=== PATIENT | male | born 1970 | race Caucasian/White ===

== ENCOUNTER → 2016-10-22 | Outpatient (CLI) | payer OTHER ==
--- NOTE | ~2016-10-22 | MR32 ---
[facility] A Service of [facility] RADIOLOGY TEXT RESULTS PATIENT: GRACIE CLEMENTS LOCATION: [facility] : 74 UNIT #: [id number] AGE: [address]: Sam Hanna DO SEX: M ORDER DR: [id number] [address] [address] [id number] O MR#: [id number] Acc #: [id number] NAME: GRACIE CLEMENTS : 1970 SEX: M STUDY DATE/TIME: 10/22/2016 11:31 UNIT: [facility] ROOM: STUDY DESCRIPTION: MR Cervical Wo Contrast Attending Physician: Sam Hanna D.O. Referring Physician: Sam Hanna D.O. Ordering Physician: Sam Hanna D.O. Primary Care Physician: Alicia Blackmon M.D. [facility]ENTER REPORT This report is preliminary unless electronic signature is present. EXAM MRI of the cervical spine without contrast dated 10/22/2016. COMPARISON None. HISTORY Increasing neck pain, mid back pain especially between the scapulae. Increased muscle spasms in the last few years. FINDINGS Multisequence, multiplanar imaging of the cervical spine was obtained without contrast. Vertebral body heights and alignment are preserved. There is mild loss of normal cervical curvature. Degenerative disc disease is at multiple levels. Cord demonstrates normal course, caliber and signal. Pre- and paravertebral soft tissues do not demonstrate any significant abnormality. C2-3: Mild degenerative disc signal loss but otherwise unremarkable. C3-4: Mild disc bulge with tiny right uncinate spur and no significant neural foraminal narrowing or canal stenosis. C4-5, C5-6: Concentric disc bulge with suspicious tiny central protrusion at C5-6. No significant canal stenosis or neural foraminal narrowing. C6-7, C7-T1: Mild degenerative disc signal loss but otherwise unremarkable. IMPRESSION 1. Mild degenerative disc disease is seen particularly at C5-6 with tiny central protrusion. [facility] A Service of [facility] RADIOLOGY TEXT RESULTS PATIENT: GRACIE CLEMENTS LOCATION: [facility] : 74 UNIT #: [id number] AGE: [address]: Sam Hanna DO SEX: M ORDER DR: 2. No significant canal stenosis or neural foraminal narrowing. 3. Cord is unremarkable. 4. Minimal anterior endplate changes are noted in the mid aspect of C5-6 likely relating to the degenerative change. Dictated by... Salvador Harris M.D. THIS IS AN ELECTRONICALLY VERIFIED REPORT Salvador Harris M.D. at 10/23/2016 3:38 PM CPR/psc TD: 10/22/2016 21:35 JOB #: [id number] MRI CENTER REPORT Page 1 of 1
--- NOTE | ~2016-10-22 | MR176 ---
[facility] A Service of [facility] RADIOLOGY TEXT RESULTS PATIENT: GRACIE CLEMENTS LOCATION: [facility] : 74 UNIT #: [id number] AGE: [address]: Sam Hanna DO SEX: M ORDER DR: [id number] [address] [address] [id number] O MR#: [id number] Acc #: [id number] NAME: GRACIE CLEMENTS : 1970 SEX: M STUDY DATE/TIME: 10/22/2016 11:55 UNIT: [facility] ROOM: STUDY DESCRIPTION: MR Thoracic Wo Contrast Attending Physician: Sam Hanna D.O. Referring Physician: Sam Hanna D.O. Ordering Physician: Sam Hanna D.O. Primary Care Physician: Alicia Blackmon M.D. [facility] CENTER REPORT This report is preliminary unless electronic signature is present. EXAM MRI of the thoracic spine without contrast dated 10/22/2016 COMPARISON Chest 2 views dated 09/07/2011. HISTORY Increasing neck pain, mid back pain especially between the scapula. Increased muscle spasm for a few years, probably less than 5 years. FINDINGS Multisequence, multiplanar imaging of the thoracic spine was obtained without contrast. Vertebral body heights and alignment are preserved. Intervertebral disc heights are intact. Thoracic cord demonstrates normal course, caliber and signal. Pre- and paravertebral soft tissues do not demonstrate any significant abnormality. Mild bilateral facet hypertrophic changes are noted at T10-11 causing minimal mass effect on the adjacent thecal sac. No focal disc herniation or neural foraminal narrowing is seen throughout the thoracic spine. IMPRESSION 1. Mild bilateral T10-11 facet hypertrophic changes are noted with minimal mass effect on the adjacent thecal sac. 2. No focal disc herniation, canal stenosis, neural foraminal narrowing or cord abnormality. Dictated by... Salvador Harris M.D. THIS IS AN ELECTRONICALLY VERIFIED REPORT Salvador Harris M.D. at 10/23/2016 3:38 [address] [facility] A Service of [facility] RADIOLOGY TEXT RESULTS PATIENT: GRACIE CLEMENTS LOCATION: [facility] : 74 UNIT #: [id number] AGE: [address]: Sam Hanna DO SEX: M ORDER DR: Luis Armando TD: 10/23/2016 09:20 JOB #: [id number] MRI CENTER REPORT Page 1 of 1
== END | disposition home or self-care (01) ==
LOC: SMRI 10:42
DX: M50.122 Cervical disc disorder at C5-C6 level with radiculopathy (principal); F43.0 Acute stress reaction; M54.14 Radiculopathy, thoracic region; Z79.891 Long term (current) use of opiate analgesic
CPT/HCPCS: 72141; 72146